=== PATIENT | female | born 1955 | race Caucasian/White ===

== ENCOUNTER → 2018-04-05 | Outpatient (CLI) | payer OTHER ==
[~2018-04-05] MED LIST: ASPI81EC PO; AZEL.05OP BOTHEYES; CALCAVITD PO; CHOL10002 PO; HYDCHL50 PO; IBUP400 PO; LOSHYD100 PO; METF500 PO; OMEGA KRILL OIL PO; TRIA55OI
[2018-04-05 09:10] LABS: BASOPHILS ABSOLUTE AUTO 0.04 K/mm3 (0.00-0.23); BASOPHILS PERCENT AUTO 0 % (0-2); EOSINOPHILS ABSOLUTE AUTO 0.07 K/mm3 (0.00-0.68); EOSINOPHILS PERCENT AUTO 0 % (0-6); Hematocrit 40.8 % (33.0-51.0); Hemoglobin 13.5 g/dL (11.5-16.0); IMMATURE GRAN PERCENT AUTO 1 % (0-1); LYMPHOCYTES ABSOLUTE AUTO 0.64 K/mm3 (0.84-5.20); LYMPHOCYTES PERCENT AUTO 4 % (21-46); MONOCYTES ABSOLUTE AUTO 0.32 K/mm3 (0.16-1.47); MONOCYTES PERCENT AUTO 2 % (4-13); Mean Corpuscular HGB Conc 33.1 g/dL (31.5-36.5); Mean Corpuscular Volume 85 fL (80-100); Mean Platelet Volume 10.3 fL (9.1-12.4); NEUTROPHILS ABSOLUTE AUTO 15.91 K/mm3 (1.96-9.15); NEUTROPHILS PERCENT AUTO 93 % (41-73); Platelet Count 237 K/mm3 (150-400); RDW Coefficient Variation 13.2 % (11.7-14.2); RDW Standard Deviation 41.1 fL (35.1-46.3); Red Blood Cell Count 4.82 M/mm3 (3.80-5.20); White Blood Cell Count 17.08 K/mm3 (4.00-11.30)
[2018-04-05 09:19] LABS: Bun/Creatinine Ratio 24.7 (12.0-20.0); Calcium, Blood 9.2 mg/dL (8.5-10.1); Creatinine, Blood 0.97 mg/dL (0.40-1.00); Potassium, Blood 3.3 mmol/L (3.5-5.5)
[2018-04-05 09:55] LABS: Source, Urine Clean Catch
[2018-04-05 10:15] LABS: White Blood Cells, Urine 0-2 /hpf (0-5)
[2018-04-05 10:16] LABS: Amorphous Mod (0-Heavy); Bacteria Many /hpf; Red Blood Cells, Urine Not Seen /hpf (0-2); Squamous Epithelial Cells Few /hpf (Few)
== END ==
LOC: LAB EV 09:03 → LAB SHORT 09:03
PROVIDERS: Physician Assistant Surgical
DX: R50.9 Fever, unspecified (principal); D72.829 Elevated white blood cell count, unspecified
CPT/HCPCS: 80048; 81015; 85025; 87040; 87086; 87147; 87184

== ENCOUNTER → 2018-04-06 | Outpatient (CLI) | payer OTHER ==
[2018-04-06 11:29] LABS: BASOPHILS ABSOLUTE AUTO 0.04 K/mm3 (0.00-0.23); BASOPHILS PERCENT AUTO 0 % (0-2); EOSINOPHILS ABSOLUTE AUTO 0.02 K/mm3 (0.00-0.68); EOSINOPHILS PERCENT AUTO 0 % (0-6); Hematocrit 36.9 % (33.0-51.0); Hemoglobin 12.4 g/dL (11.5-16.0); IMMATURE GRAN ABSOLUTE AUTO 0.08 K/mm3 (0.00-0.10); IMMATURE GRAN PERCENT AUTO 1 % (0-1); LYMPHOCYTES ABSOLUTE AUTO 0.63 K/mm3 (0.84-5.20); LYMPHOCYTES PERCENT AUTO 4 % (21-46); MONOCYTES ABSOLUTE AUTO 0.63 K/mm3 (0.16-1.47); MONOCYTES PERCENT AUTO 4 % (4-13); Mean Corpuscular HGB 28.4 pg (26.0-34.0); Mean Corpuscular HGB Conc 33.6 g/dL (31.5-36.5); Mean Corpuscular Volume 85 fL (80-100); Mean Platelet Volume 10.7 fL (9.1-12.4); NEUTROPHILS ABSOLUTE AUTO 15.23 K/mm3 (1.96-9.15); NEUTROPHILS PERCENT AUTO 92 % (41-73); Platelet Count 194 K/mm3 (150-400); RDW Coefficient Variation 13.6 % (11.7-14.2); RDW Standard Deviation 41.8 fL (35.1-46.3); Red Blood Cell Count 4.36 M/mm3 (3.80-5.20); White Blood Cell Count 16.63 K/mm3 (4.00-11.30)
[2018-04-06 11:32] LABS: Anion Gap 7 mmol/L (6-16); Blood Urea Nitrogen 16 mg/dL (8-24); Bun/Creatinine Ratio 17.8 (12.0-20.0); CO2, Blood 30 mmol/L (21-32); Chloride, Blood 101 mmol/L (98-108); Glomerular Filtration Rate >60 (60-); Glucose, Blood 161 mg/dL (70-99); Potassium, Blood 3.1 mmol/L (3.5-5.5); Sodium, Blood 138 mmol/L (136-145)
== END | disposition home or self-care (01) ==
LOC: LAB SHORT 11:22 → LAB EV 11:22
PROVIDERS: Physician Assistant Surgical
DX: D72.829 Elevated white blood cell count, unspecified (principal)
CPT/HCPCS: 80048; 85025

== ENCOUNTER → 2018-12-20 | Outpatient (CLI) | payer OTHER ==
[2018-12-24 15:06] LABS: HPV 16 Negative (Negative); HPV 18 Negative (Negative); HPV OTHER HR TYPES Negative (Negative)
== END | disposition home or self-care (01) ==
LOC: LAB 13:06 → LAB SHORT 13:06
PROVIDERS: Obstetrics & Gynecology Gynecology
DX: Z12.4 Encounter for screening for malignant neoplasm of cervix (principal)
CPT/HCPCS: 87624; G0123

== ENCOUNTER 2024-08-18 09:47 | Day surgery (SDC) | payer MEDICARE, BC ==
[~2024-08-18 09:47] MED LIST changes: +ACET500 PO; +ALLEGRA ALLERG180 MG PO; +BASAGLAR K100 UNIT/1 SC; +CALCIUM 600 MG1 EA17 PO; +GUAI200 PO; +IBUP200 PO; +INVOKANA300 MG PO; +KRILL OIL 5001 EACH PO; +LANS15EC PO; +LOSARTAN-HCTZ1 EAC6 PO; +NASACORT10.8 ML; +POTA8 PO; +VICTOZA 2-0.6 MG/0.1; +[UNRECOGNIZED DRUG - CODE] PO
== END 2024-08-18 23:00 | disposition home or self-care (01) ==
LOC: MOI US 09:47
DX: C50.811 Malignant neoplasm of overlapping sites of right female breast (principal)
CPT/HCPCS: 19285; 77065; A4648; G0279

== ENCOUNTER 2024-08-20 07:58 | Day surgery (SDC) | payer MEDICARE, BC ==
[2024-08-20] VITALS (16 sets, daily range): BP systolic 123–167; BP diastolic 54–83
[~2024-08-20] VITALS: Ht 167.6 cm; Wt 151.3 kg
[2024-08-20] MEDS ORDERED: CeFAZolin Sodium 3,000 MG in NS 100 ML IV SCH (08:45)
[2024-08-20] MEDS ORDERED: Lactated Ringer's 1,000 ML IV SCH (08:45)
[2024-08-20] MEDS ORDERED: AZELASTINE HCL6 ML BOTHEYES (08:59)
--- NOTE | 2024-08-20 09:25 | NUR ---
History, Chart, Medications and Allergies reviewed before start of procedure. Lungs clear T/O to Auscultation. Pre-Op teaching done. Pt verbalizes understanding. Patient confirms NPO status and agrees with scheduled surgery. Patient reports completing Chlorhexadine shower X2 prior to admission to hospital.
[2024-08-20] MEDS ORDERED: FentaNYL Citrate 50 MCG/ML 2 ML Injection ONE ×2 (09:55→12:40)
[2024-08-20] MEDS ORDERED: propofoL 20 ML IV ONE (09:55)
[2024-08-20] MEDS ORDERED: Lidocaine HCl 2% 20 ML MDV ONE (10:12)
[2024-08-20] MEDS ORDERED: Methylene Blue 1% 100 MG/10 ML VIAL ONE (10:40)
[2024-08-20] MEDS ORDERED: Bupivacaine 0.5% HCl 5 MG/ML 30MLVIAL ONE (10:40)
[2024-08-20] MEDS ORDERED: Rocuronium Bromide 10 MG/ML 5ML Injection IV ONE (10:48)
[2024-08-20] MEDS ORDERED: Dexamethasone Sod Phos 10 MG/ML 1ML VIAL ONE (11:00)
[2024-08-20] MEDS ORDERED: Ondansetron HCl 2 MG / ML 2ML Vial ONE (11:00)
[2024-08-20] MEDS ORDERED: Phenylephrine HCl 100 MCG/ML-NS 10MLSYR (1MG/10ML) ONE (11:09)
[2024-08-20] MEDS ORDERED: Sugammadex Sodium 200 MG/2ML SDV (100 MG/ML) ONE (12:15)
[2024-08-20] MEDS ORDERED: Ketorolac Tromethamine 30mg Vial ONE (12:54)
[2024-08-20] MEDS ORDERED: HYDROmorphone HCl/Pf 1MG SYR ONE (12:54)
[2024-08-20] MEDS ORDERED: HYDROcodone 5-APAP 325 TAB PO PRN (13:05)
[2024-08-20] MEDS ORDERED: Metoclopramide HCl 5MG / ML 2ML Vial ONE (13:13)
--- NOTE | 2024-08-20 13:23 | NUR ---
PT TO DAY SURGERY STEP DOWN FROM PACU WITH RIGHT PARTIAL BREAST MASTECTOMY; BEDSIDE REPORT RECEIVED. PT IS AWAKE, ALERT AND ORIENTED BUT SLEEPY; ABLE TO MOVE SELF IN BED. STATES PAIN IS DECREASING AND IS NOW A 4/10. PT HAS INCISION TO RIGHT BREAST THAT IS COVERED WITH GUAZE AND IS C/D/I. PT HAS BREAST BINDER IN PLACE.
--- NOTE | 2024-08-20 13:32 | NUR ---
OXYGEN VIA NC PLACED, PT SAO2 SAT DROPS BELOW 90.
--- NOTE | 2024-08-20 13:52 | NUR ---
ICE PACK TO INCISION
--- NOTE | 2024-08-20 14:24 | NUR ---
PT TOLERATING PO FLUIDS AND CRACKERS. FRIENDS AT BEDSIDE. O2 TRIAL OFF. Discharge instructions reviewed with patient. Patient verbalizes understanding. Copy given to patient to take home. Patient States Post-Procedure ride home has been arranged.
--- NOTE | 2024-08-20 15:14 | NUR ---
Patient up to Ambulate independently. Gait steady. Discharged via wheelchair to private car for ride home.
== END 2024-08-20 15:14 | disposition home or self-care (01) ==
LOC: ORSCMMR 07:58 → NM 07:58 → ORSCMMR 07:59 → NM 08:30 → ORD 10:00 → NM 15:14
PROVIDERS: Surgery
PROC: 07B50ZX Excision of Right Axillary Lymphatic, Open Approach, Diagnostic (ICD-10-PCS; principal; 2024-08-20 11:00)
PROC: 0HBT0ZZ Excision of Right Breast, Open Approach (ICD-10-PCS; principal; 2024-08-20 11:00)
DX: C50.811 Malignant neoplasm of overlapping sites of right female breast (principal); D36.0 Benign neoplasm of lymph nodes; Z17.0 Estrogen receptor positive status [ER+]; Z17.21 Progesterone receptor positive status; Z17.32 Human epidermal growth factor receptor 2 negative status; E11.9 Type 2 diabetes mellitus without complications; K21.9 Gastro-esophageal reflux disease without esophagitis; I10 Essential (primary) hypertension; E78.00 Pure hypercholesterolemia, unspecified; G47.33 Obstructive sleep apnea (adult) (pediatric); E66.01 Morbid (severe) obesity due to excess calories; Z68.43 Body mass index [BMI] 50.0-59.9, adult; Z79.84 Long term (current) use of oral hypoglycemic drugs; Z79.899 Other long term (current) drug therapy; Z79.85 Long-term (current) use of injectable non-insulin antidiabetic drugs
CPT/HCPCS: 38792; 82947; 88307; 88342; A9270; A9520; J0690; J1100; J1171; J1885; J2371; J2405; J2704; J2765; J3010; J7120; Q9968